=== PATIENT | male | born 1990 | race African-American/Black ===

== ENCOUNTER 2018-03-14 11:01 | Emergency (ER) | payer MEDICAID, OTHER ==
[~2018-03-14] VITALS: Ht 175.3 cm; Wt 120.2 kg
[2018-03-14] MEDS ORDERED: KETOROLAC TROMETH 60MG/2ML VIAL IM ONE (14:30)
[2018-03-14 14:34] VITALS: BP 133/69
== END 2018-03-14 14:36 | disposition home or self-care (01) ==
LOC: ER 11:01
DX: S90.821A Blister (nonthermal), right foot, initial encounter (principal); X58.XXXA Exposure to other specified factors, initial encounter; Y93.89 Activity, other specified; Y99.8 Other external cause status; Y92.89 Other specified places as the place of occurrence of the external cause
CPT/HCPCS: 96372; 99283; J1885

== ENCOUNTER 2019-04-17 16:25 | Emergency (ER) | payer OTHER, MEDICAID ==
[~2019-04-17] VITALS: Ht 175.3 cm; Wt 154.2 kg
[2019-04-17] MEDS ORDERED: IBUPROFEN 600 MG TAB PO ONE (16:45)
[2019-04-17 21:24] VITALS: BP 144/89
== END 2019-04-17 21:26 | disposition home or self-care (01) ==
LOC: ER 16:25
DX: J06.9 Acute upper respiratory infection, unspecified (principal)
CPT/HCPCS: 71046; 87804; 93005

== ENCOUNTER 2023-04-03 17:51 | Emergency (ER) | payer MEDICAID, OTHER ==
[~2023-04-03] VITALS: Ht 175.3 cm; Wt 139.3 kg
[2023-04-03 18:48] LABS: Alanine Aminotransferase 24 U/L (7-40); Albumin 4.3 g/dL (3.2-4.8); Alkaline Phosphatase 72 U/L (46-116); Anion Gap 6 (5-15); Aspartate Aminotransferase 21 U/L (13-40); BUN/Creatinine Ratio 8.7 (10.0-20.0); Bilirubin, Total 0.9 mg/dL (0.2-1.0); Blood Urea Nitrogen 9 mg/dL (9-23); Calcium 9.1 mg/dL (8.7-10.4); Carbon Dioxide 28 mmol/L (20-30); Chloride 106 mmol/L (98-107); Glucose 85 mg/dL (74-106); Sodium 140 mmol/L (136-145); Total Protein 7.1 g/dL (5.7-8.2)
[2023-04-03 18:50] LABS: Basophils # (auto) 0 10 ^3/uL (0-0.2); Eosinophils # (auto) 0.2 10 ^3/uL (0-0.8); Lymphocytes # (auto) 3.1 10 ^3/uL (0.4-5.4); Neutrophils # (auto) 6.7 10 ^3/uL (1.6-8.6); Red Cell Distribution Width 14.1 % (11.8-14.3)
[2023-04-03 18:52] LABS: Basophils % (auto) 0.4 % (0.0-2.0); Eosinophils % (auto) 1.6 % (0.0-7.0); Hematocrit 44.3 % (41.0-53.0); Hemoglobin 15.1 g/dL (13.5-17.5); Lymphocytes % (auto) 28.3 % (10.0-50.0); Mean Corpuscular Hemoglobin 27.2 pg (28.0-32.0); Mean Corpuscular Hgb Conc. 34.1 g/dL (32.0-36.0); Mean Corpuscular Volume 79.9 fL (80.0-100.0); Monocytes # (auto) 0.9 10 ^3/uL (0-1.3); Monocytes % (auto) 8.4 % (0.0-12.0); Neutrophils % (auto) 61.3 % (37.0-80.0); Nucleated Red Blood Cells % 0.1 %; Red Blood Cells 5.54 10^6/uL (4.5-5.90)
[2023-04-03] MEDS ORDERED: DOXY-286 PO (19:21)
[2023-04-03] MEDS ORDERED: DEX4T PO (19:21)
[2023-04-03] MEDS ORDERED: VALA500T33 PO (19:21)
[2023-04-03] MEDS: DOXYCYCLINE 100 MG TAB/CAP PO ONE (20:02)
[2023-04-03] MEDS: ACYCLOVIR 400 MG TAB PO ONE (20:02)
[2023-04-03] MEDS: DexAMETHasone 4 MG TAB PO ONE (20:02)
[2023-04-03 20:03] VITALS: BP 135/54; PULSE 18; RESP 18; TEMP 98; O2SAT 99
== END 2023-04-03 20:05 | disposition home or self-care (01) ==
LOC: ER 17:51
DX: G51.0 Bell's palsy (principal); R20.0 Anesthesia of skin; R47.81 Slurred speech
CPT/HCPCS: 36415; 70450; 71045; 80053; 84484; 85025; 93005; 99285; J8540